=== PATIENT | female | born 1960 | race Caucasian/White ===

== ENCOUNTER 2016-05-19 21:26 | Inpatient (IN) | payer BC ==
--- NOTE | ~2016-05-19 | DS ---
Unit #: [id number] #: [id number] Patient: ARA HEREDIA [id number] [place] [address] [id number] MR#: [id number] NAME: ARA HEREDIA ROOM: [facility] Age: 56 Sex: F Admission Date: 05/19/2016 : 1960 Discharge Date: 05/22/2016 Attending Physician: Juan Khoury M.D. Primary Care Physician: Primary Care Physician No DISCHARGE SUMMARY REASON FOR ADMISSION The patient is a 56-year-old white female, admitted following a suicide attempt. HOSPITAL COURSE The patient was admitted to the [facility] and placed on suicide precautions. She was continued on previously prescribed Zoloft 75 mg daily, but because of her complaints of lack of libido which had led her to believe that she had been unfaithful. She was begun on Wellbutrin XL 150 mg daily. She tolerated the medication without complaint. She remained apprehensive regarding her marital situation on 05/21/2016. On 05/22/2016, a marital session was held and discharge took place thereafter. FINAL DIAGNOSES Major depressive disorder, recurrent, moderate; hypothyroidism. DISPOSITION ON DISCHARGE The patient is discharged on the following medications; Zoloft 75 mg daily for depression, Synthroid 0.125 mg once daily for hypothyroidism, Cytomel 5 mg at bedtime and 10 mg a.m. for hypothyroidism, Wellbutrin XL 150 mg daily for depression, Flexeril 5 mg t.i.d. for muscle relaxation. DISCHARGE INSTRUCTIONS No dietary or physical restrictions were placed upon the patient at the time of discharge. FOLLOWUP Followup will take place through the auspices of the intensive outpatient program provided by this facility. PROGNOSIS The patient's prognosis is considered good. Dictated by... Juan Khoury M.D. CB/corinna TD: 05/22/2016 22:48 JOB #: [id number] Unit #: [id number] #: [id number] Patient: ARA HEREDIA DISCHARGE SUMMARY Page 1 of 1 X Juan Khoury MD X DISCHARGE SUMMARY
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
--- NOTE | ~2016-05-19 | HP ---
Unit #: [id number] #: [id number] Patient: KIM HEREDIA [id number] [place] [address] [id number] MR#: [id number] NAME: KIM HEREDIA ROOM: [facility] Age: 56 Sex: F Admission Date: 05/19/2016 : 1960 Attending Physician: Juan Khoury M.D. Admitting Physician: Juan Khoury M.D. Primary Care Physician: Primary Care Physician No HISTORY AND PHYSICAL HISTORY OF PRESENT ILLNESS Kim is a 56 year old admitted to [address] [place] [address] after an alleged suicide attempt with an overdose of thyroid medication and Zoloft. She was treated in local emergency room and when medically stable transferred to [facility] for psychiatric care. PAST MEDICAL HISTORY 1. History of thyroid cancer. a. Total thyroidectomy. b. Radiation. PAST SURGICAL HISTORY 1. As above. 2. Left carpal tunnel release. ALLERGIES No known drug allergies. SOCIAL HISTORY Smokes 1 pack per day. Drinks alcohol rarely. Denies illicit drug use. FAMILY HISTORY Medically noncontributory. REVIEW OF SYSTEMS CONSTITUTIONAL: No fever or chills. HEENT: Denies any sore throat, ear pain or runny nose. CARDIOVASCULAR: Denies chest pain, irregular heart rhythm or palpitations. CHEST: Denies shortness of breath or cough. No hemoptysis. GASTROINTESTINAL: Denies nausea, vomiting, diarrhea or chronic constipation. ENDOCRINE: Denies history of increased thirst or urination. No recent significant weight loss or gain. GENITOURINARY: Denies dysuria, frequency, or hematuria. SKIN: Denies any rashes. HEMATOLOGIC: Denies history of increased bleeding or bruising. MUSCULOSKELETAL: Denies any hot, swollen joints. No generalized muscle pain. NEUROLOGIC: Denies problems with vision or speech. No frequent, severe headaches. No numbness, tingling or weakness in any extremities. Denies loss of bladder or bowel control. CURRENT MEDICATIONS Unit #: [id number] #: [id number] Patient: KIM HEREDIA 1. Wellbutrin XL 150 mg q.a.m. 2. Cytomel 10 mg q.a.m., 5 mg q.h.s. 3. Synthroid 0.125 mg daily. 4. Zoloft 75 mg daily. 5. Flexeril 5 mg t.i.d. p.r.n. 6. Milk of Magnesia p.r.n. 7. Maalox p.r.n. 8. Tylenol p.r.n. PHYSICAL EXAMINATION GENERAL: Alert, well-nourished, in no apparent distress. VITAL SIGNS: Blood pressure 124/74, heart rate 80, respirations 16, temperature 98.6. WEIGHT: 170. HEIGHT: 5 feet 6 inches. SKIN: Warm and dry without rash or lesion. HEENT: Normocephalic. TMs not viewed. Oral and nasal passages clear. Conjunctivae clear. PERRLA. EOMs intact. NECK: Supple without lymphadenopathy or thyromegaly. HEART: Regular rate and rhythm without murmur. LUNGS: Clear. ABDOMEN: Soft, nontender. : Not done. EXTREMITIES: No evidence of cyanosis, clubbing or edema. Moves all without focal deficit. NEUROLOGICAL: Grossly within normal limits. Cranial Nerves: II: Visual kirkland are intact. III, IV AND : Extraocular movements are intact. Pupils are equal, round and reactive to light. V: Facial sensation is grossly normal. VII: Facial movements and expression are normal. VIII: Auditory acuity grossly intact. IX, X: Uvula is midline. Phonation is normal. XI: Patient shrugs shoulders and turns head normally. XII: Tongue protrudes in the midline. Sensory and Motor Function: Sensory and motor sensation is grossly normal. Motor: moves all extremities well. Coordination: Gait is normal. Deep Tendon Reflexes: Intact. IMPRESSION Psychiatric admission. RECOMMENDATIONS PSYCHIATRIC: Per psychiatrist. MEDICAL: See no contraindications to participate in facility's activities. MEDICAL PROGNOSIS Good. MEDICAL CONDITION Stable. Dictated by... Willow Abraham P.A.-C. for Loki Anderson/[facility] Unit #: [id number] #: [id number] Patient: KIM HEREDIA TD: 05/20/2016 21:44 JOB #: [id number] HISTORY AND PHYSICAL Page 1 of 1 X Willow Abraham HISTORY AND PHYSICAL
[2016-05-20 09:57] LABS: THYROID STIMULATING HORMONE 0.05 uIU/ml (0.34-5.60)
[2016-05-20 10:03] LABS: FREE THYROXIN (T4) 1.67 ng/dL (0.58-1.64)
[2016-05-21 10:04] LABS: THYROID STIMULATING HORMONE 0.05 uIU/ml (0.34-5.60)
[2016-05-21 10:11] LABS: FREE THYROXIN (T4) 1.38 ng/dL (0.58-1.64)
[2016-05-21 10:19] LABS: ALBUMIN SERUM 4.2 g/dL (3.5-5.0); BILIRUBIN, DIRECT 0.1 mg/dL (0.0-0.2); BILIRUBIN,INDIRECT 0.2 mg/dL (0.0-0.9); BILIRUBIN,TOTAL 0.3 mg/dL (0.2-2.0); PROTEIN TOTAL SERUM 6.9 g/dL (6.0-8.3)
== END 2016-05-22 15:50 | disposition home or self-care (01) | DRG 885 ==
LOC: P2L 21:26
PROVIDERS: Specialist
DX: F33.1 Major depressive disorder, recurrent, moderate (principal); E03.9 Hypothyroidism, unspecified; F17.210 Nicotine dependence, cigarettes, uncomplicated; Z85.850 Personal history of malignant neoplasm of thyroid
CPT/HCPCS: 80076; 84439; 84443; 84480